=== PATIENT | female | born 1955 | race Caucasian/White ===

== ENCOUNTER 2017-10-23 19:02 | Inpatient (IN) | payer OTHER ==
[2017-10-23] MEDS: SOD CHLORIDE 0.9% 1,000 ML IV (21:10)
[2017-10-23] MEDS: ONDANSETRON 4 MG INJ IV (21:10)
[2017-10-23 21:26] LABS: URINE BLOOD (Dip) POC Trace-lysed (NEGATIVE); URINE GLUCOSE (Dip) POC Negative (NEGATIVE); URINE KETONES (Dip) POC 1+ (NEGATIVE); URINE LEUKOCYTE EST (Dip) POC Negative (NEGATIVE); URINE NITRITE (Dip) POC Negative (NEGATIVE); URINE TOTAL PROTEIN POC 3+ (NEGATIVE)
[2017-10-23 21:26] LABS: URINE PH (Dip) POC 6.5 (5.0-8.5)
[2017-10-23 21:39] LABS: ADD MAN DIFF? NO
[2017-10-23 21:43] LABS: BASOPHILS % 0.4 % (0.0-2.0); EOSINOPHILS # 0.3 10^3/ul (0.0-0.5); EOSINOPHILS % 2.8 % (0.0-7.0); HEMATOCRIT 41.8 % (37.0-47.0); HEMOGLOBIN 15.1 g/dl (12.0-16.0); LYMPHOCYTES # 2.4 10^3/ul (0.8-2.9); LYMPHOCYTES % 21.5 % (15.0-51.0); MEAN CORPUSCULAR HEMOGLOBIN 29.3 pg (29.0-33.0); MEAN CORPUSCULAR HGB CONC 36.1 g/dl (32.0-37.0); MEAN PLATELET VOLUME 12.4 fl (7.4-10.4); MONOCYTE # 0.9 10^3/ul (0.3-0.9); MONOCYTES % 8.3 % (0.0-11.0); NEUTROPHIL # 7.4 10^3/ul (1.6-7.5); NEUTROPHILS % 66.2 % (39.0-77.0); PLATELET COUNT 276 10^3/UL (140-415); RED BLOOD COUNT 5.16 10^6/ul (4.20-5.40); RED CELL DISTRIBUTION WIDTH 11.8 % (11.5-14.5)
[2017-10-23 21:43] LABS: WHITE BLOOD COUNT 11.2 10^3/ul (4.8-10.8)
[2017-10-23 21:58] LABS: ALANINE AMINOTRANSFERASE 27 IU/L (13-69); ALBUMIN 4.7 g/dl (3.3-4.9); ALBUMIN/GLOBULIN RATIO 1.34; ALKALINE PHOSPHATASE 70 IU/L (42-121); ANION GAP 17 (8-16); ASPARTATE AMINO TRANSFERASE 22 IU/L (15-46); BILIRUBIN,INDIRECT 0.6 mg/dl (0-1.1); BILIRUBIN,TOTAL 0.6 mg/dl (0.2-1.3); BLOOD UREA NITROGEN 19 mg/dl (7-20); CALCIUM 9.3 mg/dl (8.4-10.2); CARBON DIOXIDE 21 mmol/L (21-31); CHLORIDE 79 mmol/L (97-110); CREATININE 0.69 mg/dl (0.44-1.00); GLUCOSE 123 mg/dl (70-220); LIPASE 377 U/L (23-300); POTASSIUM 5.3 mmol/L (3.5-5.1); TOTAL PROTEIN 8.2 g/dl (6.1-8.1)
[2017-10-23 22:04] LABS: SODIUM 112 mmol/L (135-144)
[2017-10-23] MEDS: HYDROCORTISONE 100 MG INJ IV (22:10)
[2017-10-23] MEDS: SOD CHLORIDE 0.9% 500 ML IV (22:14)
[2017-10-23 22:17] LABS: TROPONIN-I < 0.012 ng/ml (0.000-0.120)
[2017-10-24] MEDS ORDERED: morphine 2 MG INJ IV (02:00)
[2017-10-24] MEDS: SOD CHLORIDE 0.9% 1,000 ML IV (03:20)
[2017-10-24 06:32] LABS: ADD MAN DIFF? NO
[2017-10-24 06:36] LABS: WHITE BLOOD COUNT 7.5 10^3/ul (4.8-10.8)
[2017-10-24 06:36] LABS: BASOPHILS % 0.1 % (0.0-2.0); EOSINOPHILS # 0.1 10^3/ul (0.0-0.5); EOSINOPHILS % 0.8 % (0.0-7.0); HEMATOCRIT 42.7 % (37.0-47.0); HEMOGLOBIN 15.3 g/dl (12.0-16.0); LYMPHOCYTES # 1.2 10^3/ul (0.8-2.9); LYMPHOCYTES % 16.3 % (15.0-51.0); MEAN CORPUSCULAR HEMOGLOBIN 29.6 pg (29.0-33.0); MEAN CORPUSCULAR HGB CONC 35.8 g/dl (32.0-37.0); MEAN CORPUSCULAR VOLUME 82.6 fl (82.0-101.0); MONOCYTE # 0.4 10^3/ul (0.3-0.9); MONOCYTES % 5.1 % (0.0-11.0); NEUTROPHIL # 5.7 10^3/ul (1.6-7.5); NEUTROPHILS % 76.5 % (39.0-77.0); PLATELET COUNT 303 10^3/UL (140-415); RED BLOOD COUNT 5.17 10^6/ul (4.20-5.40); RED CELL DISTRIBUTION WIDTH 11.8 % (11.5-14.5)
[2017-10-24 07:11] LABS: ALANINE AMINOTRANSFERASE 24 IU/L (13-69); ALBUMIN 4.5 g/dl (3.3-4.9); ALBUMIN/GLOBULIN RATIO 1.45; ALKALINE PHOSPHATASE 62 IU/L (42-121); ANION GAP 18 (8-16); ASPARTATE AMINO TRANSFERASE 25 IU/L (15-46); BILIRUBIN,INDIRECT 0.6 mg/dl (0-1.1); BILIRUBIN,TOTAL 0.6 mg/dl (0.2-1.3); BLOOD UREA NITROGEN 12 mg/dl (7-20); CALCIUM 9.6 mg/dl (8.4-10.2); CARBON DIOXIDE 21 mmol/L (21-31); CHLORIDE 92 mmol/L (97-110); CHOL/HDL RATIO 3.8 RATIO; CHOLESTEROL 226 mg/dl (100-200); CREATININE 0.64 mg/dl (0.44-1.00); GLUCOSE 138 mg/dl (70-220); HDL CHOLESTEROL 59 mg/dl (35-98); LDL CHOLESTEROL,CALCULATED 134 mg/dl; MAGNESIUM 1.9 mg/dl (1.7-2.5); POTASSIUM 5.4 mmol/L (3.5-5.1); SODIUM 126 mmol/L (135-144); TOTAL PROTEIN 7.6 g/dl (6.1-8.1); TRIGLYCERIDES 167 mg/dl (0-149)
[2017-10-24 07:18] LABS: FREE THYROXINE INDEX (Calc) 3.75 ug/ml (0.65-3.89); T3 UPTAKE 34.7 % (23.5-40.5); T4 (THYROXINE) 10.8 ug/dl (5.5-11.0)
[2017-10-24 07:32] LABS: THYROID STIMULATING HORMONE 0.856 MIU/L (0.465-4.680)
[2017-10-24] MEDS: LEVOTHYROXINE 100 MCG TAB PO (08:03)
[2017-10-24] MEDS: metFORMIN 500 MG TAB PO ×2 (08:03→17:06)
[2017-10-24] MEDS: ASPIRIN 81 MG TAB PO (08:03)
[2017-10-24] MEDS: LISINOPRIL 5 MG TAB PO (08:04)
[2017-10-24 09:50] LABS: TROPONIN-I < 0.012 ng/ml (0.000-0.120)
[2017-10-24] MEDS ORDERED: GLUCOSE GEL 15 GRAM TUBE PO ×2 (10:30)
[2017-10-24] MEDS ORDERED: DEXTROSE 50% 50 ML SYRINGE IV ×2 (10:30)
[2017-10-24] MEDS: NA POLYST SULFON 15 GM/60 ML BTL PO (10:30)
[2017-10-24] MEDS ORDERED: GLUCOSE GEL 15 GRAM TUBE BUCCAL (10:30)
[2017-10-24] MEDS ORDERED: GLUCAGON 1 MG INJ IM (10:30)
[2017-10-24] MEDS: PANTOPRAZOLE 40 MG INJ IV (11:23)
[2017-10-24] MEDS: INSULIN ASPART [NOVOLOG] 3 ML PEN SC ×3 (11:30→21:00)
[2017-10-24 17:02] LABS: ANION GAP 17 (8-16); BLOOD UREA NITROGEN 14 mg/dl (7-20); CARBON DIOXIDE 20 mmol/L (21-31); CHLORIDE 90 mmol/L (97-110); CREATININE 0.75 mg/dl (0.44-1.00); GLUCOSE 122 mg/dl (70-220); SODIUM 122 mmol/L (135-144)
[2017-10-24] MEDS: INSULIN GLARGINE [LANtus] 3 ML PEN SC (20:00)
[2017-10-24] MEDS: ATORVASTATIN 10 MG TAB PO (21:52)
[2017-10-24] MEDS: ONDANSETRON 4 MG INJ IV (22:04)
[2017-10-24] MEDS: HYDROCORTISONE 5 MG TAB PO (22:05)
[2017-10-24] MEDS: SOD CHLORIDE 0.45% 1,000 ML IV (23:32)
[2017-10-25] MEDS: ACCU-CHEK XX (02:00)
[2017-10-25] MEDS: PANTOPRAZOLE 40 MG INJ IV (05:17)
[2017-10-25] MEDS: LEVOTHYROXINE 100 MCG TAB PO (05:22)
[2017-10-25 06:34] LABS: ADD MAN DIFF? NO
[2017-10-25 06:40] LABS: BASOPHILS % 0.2 % (0.0-2.0); EOSINOPHILS # 0.2 10^3/ul (0.0-0.5); EOSINOPHILS % 2.1 % (0.0-7.0); HEMATOCRIT 40.8 % (37.0-47.0); HEMOGLOBIN 14.5 g/dl (12.0-16.0); LYMPHOCYTES # 1.8 10^3/ul (0.8-2.9); LYMPHOCYTES % 18.7 % (15.0-51.0); MEAN CORPUSCULAR HEMOGLOBIN 29.6 pg (29.0-33.0); MEAN CORPUSCULAR HGB CONC 35.5 g/dl (32.0-37.0); MEAN CORPUSCULAR VOLUME 83.3 fl (82.0-101.0); MEAN PLATELET VOLUME 12.2 fl (7.4-10.4); MONOCYTE # 0.6 10^3/ul (0.3-0.9); MONOCYTES % 6.4 % (0.0-11.0); NEUTROPHIL # 6.9 10^3/ul (1.6-7.5); NEUTROPHILS % 71.5 % (39.0-77.0); PLATELET COUNT 290 10^3/UL (140-415); RED CELL DISTRIBUTION WIDTH 11.9 % (11.5-14.5)
[2017-10-25 06:40] LABS: WHITE BLOOD COUNT 9.6 10^3/ul (4.8-10.8)
[2017-10-25 07:08] LABS: ANION GAP 18 (8-16); BLOOD UREA NITROGEN 12 mg/dl (7-20); CALCIUM 9.4 mg/dl (8.4-10.2); CARBON DIOXIDE 22 mmol/L (21-31); CHLORIDE 85 mmol/L (97-110); CREATININE 0.72 mg/dl (0.44-1.00); GLUCOSE 122 mg/dl (70-220); MAGNESIUM 1.4 mg/dl (1.7-2.5); PHOSPHORUS 3.8 mg/dl (2.5-4.9); POTASSIUM 4.5 mmol/L (3.5-5.1); SODIUM 120 mmol/L (135-144)
[2017-10-25] MEDS: INSULIN ASPART [NOVOLOG] 3 ML PEN SC ×4 (07:55→20:45)
[2017-10-25] MEDS: HYDROCORTISONE 20 MG TAB PO (08:06)
[2017-10-25] MEDS: metFORMIN 500 MG TAB PO ×2 (08:06→16:59)
[2017-10-25] MEDS: ASPIRIN 81 MG TAB PO (08:06)
[2017-10-25] MEDS: LISINOPRIL 5 MG TAB PO (08:06)
[2017-10-25] MEDS: MAGNESIUM SULFATE 2 GM/50 ML 50 ML IVPB (09:46)
[2017-10-25] MEDS: SOD CHLORIDE 0.9% 1,000 ML IV ×2 (09:47→23:14)
[2017-10-25] MEDS: SUCRALFATE (100 MG/ML) 10ML CUP PO ×3 (12:23→20:42)
[2017-10-25 15:20] LABS: ALBUMIN 4.4 g/dl (3.3-4.9); ANION GAP 19 (8-16); BLOOD UREA NITROGEN 13 mg/dl (7-20); CALCIUM 9.2 mg/dl (8.4-10.2); CARBON DIOXIDE 20 mmol/L (21-31); CHLORIDE 88 mmol/L (97-110); CREATININE 0.78 mg/dl (0.44-1.00); GLUCOSE 158 mg/dl (70-220); PHOSPHORUS 3.6 mg/dl (2.5-4.9); POTASSIUM 5.3 mmol/L (3.5-5.1); SODIUM 122 mmol/L (135-144)
[2017-10-25] MEDS: INSULIN GLARGINE [LANtus] 3 ML PEN SC (20:00)
[2017-10-25] MEDS: ONDANSETRON 4 MG INJ IV (20:42)
[2017-10-25] MEDS: ATORVASTATIN 10 MG TAB PO (20:42)
[2017-10-25] MEDS: HYDROCORTISONE 5 MG TAB PO (20:50)
[2017-10-26] MEDS: ACCU-CHEK XX (01:04)
[2017-10-26] MEDS: PANTOPRAZOLE 40 MG INJ IV (06:00)
[2017-10-26] MEDS: LEVOTHYROXINE 100 MCG TAB PO (06:00)
[2017-10-26] MEDS: SUCRALFATE (100 MG/ML) 10ML CUP PO ×4 (06:00→20:59)
[2017-10-26 06:04] LABS: ADD MAN DIFF? NO
[2017-10-26 06:14] LABS: BASOPHILS % 0.4 % (0.0-2.0); EOSINOPHILS # 0.2 10^3/ul (0.0-0.5); EOSINOPHILS % 2.2 % (0.0-7.0); HEMATOCRIT 37.5 % (37.0-47.0); HEMOGLOBIN 13.4 g/dl (12.0-16.0); LYMPHOCYTES # 1.4 10^3/ul (0.8-2.9); LYMPHOCYTES % 16.8 % (15.0-51.0); MEAN CORPUSCULAR HEMOGLOBIN 29.9 pg (29.0-33.0); MEAN CORPUSCULAR HGB CONC 35.7 g/dl (32.0-37.0); MEAN CORPUSCULAR VOLUME 83.7 fl (82.0-101.0); MEAN PLATELET VOLUME 11.5 fl (7.4-10.4); MONOCYTE # 0.6 10^3/ul (0.3-0.9); MONOCYTES % 6.4 % (0.0-11.0); NEUTROPHIL # 6.3 10^3/ul (1.6-7.5); NEUTROPHILS % 73.4 % (39.0-77.0); PLATELET COUNT 255 10^3/UL (140-415); RED BLOOD COUNT 4.48 10^6/ul (4.20-5.40)
[2017-10-26 06:14] LABS: WHITE BLOOD COUNT 8.6 10^3/ul (4.8-10.8)
[2017-10-26 06:41] LABS: ANION GAP 14 (8-16); BLOOD UREA NITROGEN 16 mg/dl (7-20); CALCIUM 8.9 mg/dl (8.4-10.2); CARBON DIOXIDE 25 mmol/L (21-31); CHLORIDE 88 mmol/L (97-110); CREATININE 0.65 mg/dl (0.44-1.00); GLUCOSE 111 mg/dl (70-220); MAGNESIUM 1.6 mg/dl (1.7-2.5); PHOSPHORUS 3.2 mg/dl (2.5-4.9); POTASSIUM 4.8 mmol/L (3.5-5.1); SODIUM 122 mmol/L (135-144)
[2017-10-26] MEDS: LISINOPRIL 5 MG TAB PO (07:49)
[2017-10-26] MEDS: ASPIRIN 81 MG TAB PO (07:49)
[2017-10-26] MEDS: HYDROCORTISONE 20 MG TAB PO (07:50)
[2017-10-26] MEDS: metFORMIN 500 MG TAB PO ×2 (07:50→17:04)
[2017-10-26] MEDS: INSULIN ASPART [NOVOLOG] 3 ML PEN SC ×4 (07:53→20:59)
[2017-10-26] MEDS: ONDANSETRON 4 MG INJ IV (07:59)
[2017-10-26] MEDS: MAGNESIUM SULFATE 2 GM/50 ML 50 ML IVPB (10:22)
[2017-10-26] MEDS: SOD CHLORIDE 0.9% 1,000 ML IV ×2 (14:06→17:06)
[2017-10-26] MEDS ORDERED: morphine LIQ (10 MG/5 ML) CUP PO (15:00)
[2017-10-26] MEDS: ATORVASTATIN 10 MG TAB PO (20:59)
[2017-10-26] MEDS: HYDROCORTISONE 5 MG TAB PO (20:59)
[2017-10-26] MEDS: INSULIN GLARGINE [LANtus] 3 ML PEN SC (21:04)
[2017-10-27] MEDS: ACCU-CHEK XX (02:00)
[2017-10-27] MEDS: PANTOPRAZOLE 40 MG INJ IV (06:19)
[2017-10-27] MEDS: LEVOTHYROXINE 100 MCG TAB PO (06:20)
[2017-10-27] MEDS: SOD CHLORIDE 0.9% 1,000 ML IV ×3 (06:20→18:59)
[2017-10-27] MEDS: SUCRALFATE (100 MG/ML) 10ML CUP PO ×5 (07:12→20:16)
[2017-10-27] MEDS: HYDROCORTISONE 20 MG TAB PO (07:44)
[2017-10-27] MEDS: ASPIRIN 81 MG TAB PO (07:44)
[2017-10-27] MEDS: INSULIN ASPART [NOVOLOG] 3 ML PEN SC ×4 (07:44→20:15)
[2017-10-27] MEDS: metFORMIN 500 MG TAB PO ×2 (07:44→17:23)
[2017-10-27] MEDS: LISINOPRIL 5 MG TAB PO (07:46)
[2017-10-27 11:17] LABS: ANION GAP 17 (8-16); BLOOD UREA NITROGEN 15 mg/dl (7-20); CALCIUM 9.4 mg/dl (8.4-10.2); CARBON DIOXIDE 20 mmol/L (21-31); CHLORIDE 93 mmol/L (97-110); CREATININE 0.75 mg/dl (0.44-1.00); GLUCOSE 123 mg/dl (70-220); POTASSIUM 5.3 mmol/L (3.5-5.1); SODIUM 125 mmol/L (135-144)
[2017-10-27] MEDS: IBUPROFEN 600 MG TAB PO (12:23)
[2017-10-27] MEDS: NA BICARBONATE 650 MG TAB PO ×2 (17:22→23:23)
[2017-10-27] MEDS: NA POLYST SULFON 15 GM/60 ML BTL PO (17:22)
[2017-10-27] MEDS: HYDROCORTISONE 5 MG TAB PO (20:16)
[2017-10-27] MEDS: ATORVASTATIN 10 MG TAB PO (20:16)
[2017-10-27] MEDS: INSULIN GLARGINE [LANtus] 3 ML PEN SC (20:41)
[2017-10-28] MEDS: ACCU-CHEK XX (02:00)
[2017-10-28] MEDS: PANTOPRAZOLE 40 MG INJ IV (06:35)
[2017-10-28] MEDS: LEVOTHYROXINE 100 MCG TAB PO (06:35)
[2017-10-28] MEDS: SUCRALFATE (100 MG/ML) 10ML CUP PO ×4 (07:35→20:19)
[2017-10-28] MEDS: INSULIN ASPART [NOVOLOG] 3 ML PEN SC ×4 (07:55→20:20)
[2017-10-28] MEDS: HYDROCORTISONE 20 MG TAB PO (08:15)
[2017-10-28] MEDS: metFORMIN 500 MG TAB PO ×2 (08:16→17:49)
[2017-10-28] MEDS: ASPIRIN 81 MG TAB PO (08:16)
[2017-10-28] MEDS: NA BICARBONATE 650 MG TAB PO ×2 (08:16→20:20)
[2017-10-28] MEDS: SOD CHLORIDE 0.9% 1,000 ML IV ×2 (10:11→23:25)
[2017-10-28] MEDS: IBUPROFEN 600 MG TAB PO ×2 (12:19→23:24)
[2017-10-28 12:47] LABS: ANION GAP 16 (8-16); BLOOD UREA NITROGEN 16 mg/dl (7-20); CALCIUM 9.5 mg/dl (8.4-10.2); CARBON DIOXIDE 25 mmol/L (21-31); CHLORIDE 95 mmol/L (97-110); CREATININE 0.66 mg/dl (0.44-1.00); GLUCOSE 103 mg/dl (70-220); MAGNESIUM 1.4 mg/dl (1.7-2.5); PHOSPHORUS 4.1 mg/dl (2.5-4.9); POTASSIUM 4.5 mmol/L (3.5-5.1); SODIUM 131 mmol/L (135-144)
[2017-10-28] MEDS: MAGNESIUM SULFATE 4 GM/100 ML 100 ML IVPB (13:29)
[2017-10-28] MEDS: ATORVASTATIN 10 MG TAB PO (20:20)
[2017-10-28] MEDS: INSULIN GLARGINE [LANtus] 3 ML PEN SC (20:23)
[2017-10-28] MEDS: HYDROCORTISONE 5 MG TAB PO (20:56)
[2017-10-29] MEDS: ACCU-CHEK XX (02:00)
[2017-10-29] MEDS: PANTOPRAZOLE 40 MG INJ IV (05:42)
[2017-10-29] MEDS: LEVOTHYROXINE 100 MCG TAB PO (05:42)
[2017-10-29 07:42] LABS: ANION GAP 15 (8-16); BLOOD UREA NITROGEN 22 mg/dl (7-20); CALCIUM 9.5 mg/dl (8.4-10.2); CARBON DIOXIDE 25 mmol/L (21-31); CHLORIDE 99 mmol/L (97-110); CREATININE 0.88 mg/dl (0.44-1.00); GLUCOSE 102 mg/dl (70-220); MAGNESIUM 1.9 mg/dl (1.7-2.5); PHOSPHORUS 5.3 mg/dl (2.5-4.9); POTASSIUM 5.3 mmol/L (3.5-5.1); SODIUM 134 mmol/L (135-144)
[2017-10-29] MEDS: INSULIN ASPART [NOVOLOG] 3 ML PEN SC ×4 (07:55→20:01)
[2017-10-29] MEDS: NA BICARBONATE 650 MG TAB PO (08:08)
[2017-10-29] MEDS: metFORMIN 500 MG TAB PO ×2 (08:09→17:23)
[2017-10-29] MEDS: SUCRALFATE (100 MG/ML) 10ML CUP PO ×4 (08:09→20:00)
[2017-10-29] MEDS: ASPIRIN 81 MG TAB PO (08:09)
[2017-10-29] MEDS: HYDROCORTISONE 20 MG TAB PO (08:17)
[2017-10-29] MEDS: NA POLYST SULFON 15 GM/60 ML BTL PO (09:06)
[2017-10-29] MEDS: SOD CHLORIDE 0.9% 1,000 ML IV (12:55)
[2017-10-29] MEDS: ATORVASTATIN 10 MG TAB PO (20:00)
[2017-10-29] MEDS: HYDROCORTISONE 5 MG TAB PO (20:01)
[2017-10-29] MEDS: INSULIN GLARGINE [LANtus] 3 ML PEN SC (20:03)
[2017-10-30] MEDS: ACCU-CHEK XX (02:00)
[2017-10-30] MEDS: SOD CHLORIDE 0.9% 1,000 ML IV ×2 (03:13→03:54)
[2017-10-30] MEDS: PANTOPRAZOLE 40 MG INJ IV (05:49)
[2017-10-30] MEDS: LEVOTHYROXINE 100 MCG TAB PO (05:49)
[2017-10-30 06:33] LABS: ALBUMIN 3.6 g/dl (3.3-4.9); ANION GAP 14 (8-16); BLOOD UREA NITROGEN 16 mg/dl (7-20); CALCIUM 9.3 mg/dl (8.4-10.2); CARBON DIOXIDE 27 mmol/L (21-31); CHLORIDE 102 mmol/L (97-110); CREATININE 0.71 mg/dl (0.44-1.00); GLUCOSE 92 mg/dl (70-220); MAGNESIUM 1.5 mg/dl (1.7-2.5); PHOSPHORUS 5.2 mg/dl (2.5-4.9); POTASSIUM 4.9 mmol/L (3.5-5.1); SODIUM 138 mmol/L (135-144)
[2017-10-30] MEDS: INSULIN ASPART [NOVOLOG] 3 ML PEN SC ×2 (07:55→11:19)
[2017-10-30] MEDS: ASPIRIN 81 MG TAB PO (08:05)
[2017-10-30] MEDS: HYDROCORTISONE 20 MG TAB PO (08:05)
[2017-10-30] MEDS: metFORMIN 500 MG TAB PO (08:05)
[2017-10-30] MEDS: SUCRALFATE (100 MG/ML) 10ML CUP PO ×2 (08:05→11:14)
[2017-10-30] MEDS: MAGNESIUM SULFATE 2 GM/50 ML 50 ML IVPB (11:14)
== END 2017-10-30 17:47 | disposition home or self-care (01) | DRG 641 ==
LOC: TEL 23:11 → FTE 19:02
DX: E87.1 Hypo-osmolality and hyponatremia (principal); E27.1 Primary adrenocortical insufficiency; R11.2 Nausea with vomiting, unspecified; I10 Essential (primary) hypertension; E11.9 Type 2 diabetes mellitus without complications; E78.5 Hyperlipidemia, unspecified; R51 Headache; E87.5 Hyperkalemia; E03.9 Hypothyroidism, unspecified; Z79.4 Long term (current) use of insulin; Z79.84 Long term (current) use of oral hypoglycemic drugs; Z79.82 Long term (current) use of aspirin
CPT/HCPCS: 80048; 80053; 80061; 80069; 81003; 82533; 82962; 83036; 83690; 83735; 84100; 84436; 84443; 84479; 84484; 85025; 93005; 96374; 96375; 99285-25

== ENCOUNTER 2018-01-27 18:43 | Emergency (ER) | payer OTHER ==
[2018-01-27] MEDS: ONDANSETRON (ODT) 4 MG TAB ODT (21:45)
[2018-01-27 21:59] LABS: ADD UMIC YES; UR ASCORBIC ACID NEGATIVE (NEGATIVE); UR BACTERIA FEW /HPF (NONE SEEN); UR BILIRUBIN (Dip) NEGATIVE (NEGATIVE); UR BLOOD (Dip) NEGATIVE (NEGATIVE); UR CLARITY CLEAR (CLEAR); UR COLOR YELLOW (YELLOW); UR GLUCOSE (Dip) NEGATIVE (NEGATIVE); UR KETONES (Dip) TRACE mg/dL (NEGATIVE); UR LEUKOCYTE ESTERASE (Dip) 1+ Leu/ul (NEGATIVE); UR MUCUS FEW /HPF (NONE SEEN); UR NITRITE (Dip) NEGATIVE (NEGATIVE); UR RBC 1 /HPF (0-5); UR SPECIFIC GRAVITY (Dip) 1.019 (1.003-1.030); UR SQUAMOUS EPITHELIAL CELL FEW /HPF (FEW); UR TOTAL PROTEIN (Dip) 1+ mg/dl (NEGATIVE); UR UROBILINOGEN (Dip) 1+ mg/dL (NEGATIVE); UR WBC 24 /HPF (0-5)
[2018-01-27] MEDS: CEPHALEXIN 500 MG CAP PO (22:38)
[2018-01-27] MEDS: DEXAMETHASONE 4 MG/ML 1 ML INJ IM (22:40)
== END 2018-01-27 22:51 | disposition home or self-care (01) ==
LOC: FTE 18:43
DX: N30.00 Acute cystitis without hematuria (principal); R19.7 Diarrhea, unspecified; I10 Essential (primary) hypertension; E11.9 Type 2 diabetes mellitus without complications; Z79.82 Long term (current) use of aspirin; Z79.84 Long term (current) use of oral hypoglycemic drugs
CPT/HCPCS: 81001; 82962; 96372; 99284-25

== ENCOUNTER 2018-02-12 10:08 | Emergency (ER) | payer OTHER ==
[2018-02-12 11:02] LABS: ADD MAN DIFF? NO
[2018-02-12 11:04] LABS: WHITE BLOOD COUNT 11.7 10^3/ul (4.8-10.8)
[2018-02-12 11:04] LABS: BASOPHILS % 0.3 % (0.0-2.0); EOSINOPHILS # 0.1 10^3/ul (0.0-0.5); EOSINOPHILS % 1.1 % (0.0-7.0); HEMATOCRIT 38.5 % (37.0-47.0); HEMOGLOBIN 12.7 g/dl (12.0-16.0); LYMPHOCYTES % 8.6 % (15.0-51.0); MEAN CORPUSCULAR HEMOGLOBIN 28.9 pg (29.0-33.0); MEAN CORPUSCULAR VOLUME 87.7 fl (82.0-101.0); MEAN PLATELET VOLUME 11.2 fl (7.4-10.4); MONOCYTE # 0.5 10^3/ul (0.3-0.9); MONOCYTES % 4.6 % (0.0-11.0); NEUTROPHIL # 9.9 10^3/ul (1.6-7.5); NEUTROPHILS % 84.9 % (39.0-77.0); PLATELET COUNT 269 10^3/UL (140-415); RED BLOOD COUNT 4.39 10^6/ul (4.20-5.40); RED CELL DISTRIBUTION WIDTH 12.6 % (11.5-14.5)
[2018-02-12 11:28] LABS: ALANINE AMINOTRANSFERASE 23 IU/L (13-69); ALBUMIN 4.3 g/dl (3.3-4.9); ALBUMIN/GLOBULIN RATIO 1.59; ALKALINE PHOSPHATASE 53 IU/L (42-121); ANION GAP 16 (8-16); ASPARTATE AMINO TRANSFERASE 20 IU/L (15-46); BILIRUBIN,INDIRECT 0.5 mg/dl (0-1.1); BILIRUBIN,TOTAL 0.5 mg/dl (0.2-1.3); BLOOD UREA NITROGEN 24 mg/dl (7-20); CALCIUM 9.8 mg/dl (8.4-10.2); CARBON DIOXIDE 24 mmol/L (21-31); CHLORIDE 100 mmol/L (97-110); CREATININE 0.71 mg/dl (0.44-1.00); GLUCOSE 109 mg/dl (70-220); LIPASE 480 U/L (23-300); POTASSIUM 5.2 mmol/L (3.5-5.1); SODIUM 135 mmol/L (135-144)
[2018-02-12 11:40] LABS: TROPONIN-I < 0.012 ng/ml (0.000-0.120)
[2018-02-12 13:10] LABS: ADD UMIC NO; UR ASCORBIC ACID NEGATIVE (NEGATIVE); UR BILIRUBIN (Dip) NEGATIVE (NEGATIVE); UR BLOOD (Dip) NEGATIVE (NEGATIVE); UR CLARITY CLEAR (CLEAR); UR COLOR STRAW (YELLOW); UR GLUCOSE (Dip) NEGATIVE (NEGATIVE); UR KETONES (Dip) NEGATIVE (NEGATIVE); UR LEUKOCYTE ESTERASE (Dip) NEGATIVE Leu/ul (NEGATIVE); UR NITRITE (Dip) NEGATIVE (NEGATIVE); UR SPECIFIC GRAVITY (Dip) 1.008 (1.003-1.030); UR TOTAL PROTEIN (Dip) NEGATIVE (NEGATIVE); UR UROBILINOGEN (Dip) NEGATIVE (NEGATIVE)
[2018-02-12 13:23] LABS: SODIUM,URINE RANDOM 97 mmol/L (30-90)
== END 2018-02-12 14:58 | disposition home or self-care (01) ==
LOC: E/R 10:08
DX: E27.1 Primary adrenocortical insufficiency (principal); E11.9 Type 2 diabetes mellitus without complications; E03.9 Hypothyroidism, unspecified; Z79.82 Long term (current) use of aspirin; Z79.84 Long term (current) use of oral hypoglycemic drugs
CPT/HCPCS: 36415; 80053; 81003; 82436; 83690; 84300; 84484; 85025; 93005; 99284-25